=== PATIENT | female | born 1970 | race Caucasian/White ===

== ENCOUNTER 2021-12-26 12:54 | Emergency (ER) | payer BC ==
[2021-12-26 13:43] LABS: HEMOGLOBIN 14.9 gm/dl (12.3-15.3); RED BLOOD COUNT 5.52 M/UL (4.00-5.10)
[2021-12-26 14:12] LABS: BUN/CREATININE RATIO 18 (0-10)
[2021-12-26] MEDS ORDERED: ZOFRAN ODT 4 MG4 MG SL (15:33)
== END 2021-12-26 15:04 | disposition home or self-care (01) ==
LOC: ER1 12:54
PROVIDERS: Physician Assistant
DX: R06.02 Shortness of breath (principal); R11.0 Nausea; Z20.822 Contact with and (suspected) exposure to COVID-19; Z88.2 Allergy status to sulfonamides
CPT/HCPCS: 71045; 80053; 82550; 82553; 83690; 83874; 84484; 85025; 93005; 99285; J2405; U0003